=== PATIENT | female | born 1945 | race Native Hawaiian/Other Pacific Islander ===

== ENCOUNTER 2018-08-01 12:52 | Outpatient (CLI) | payer OTHER | END 2018-08-01 21:07 | disposition home or self-care (01) | LOC: RAD 12:52 | DX: M79.671 Pain in right foot (principal) ==

== ENCOUNTER 2019-06-15 16:20 | Outpatient (CLI) | payer OTHER | END 2019-06-15 19:47 | disposition home or self-care (01) | LOC: RAD 16:20 | DX: R05 Cough (principal) ==

== ENCOUNTER 2019-06-29 10:58 | Outpatient (CLI) | payer OTHER | END 2019-06-29 21:56 | disposition home or self-care (01) | LOC: RAD 10:58 | DX: M25.551 Pain in right hip (principal); N95.8 Other specified menopausal and perimenopausal disorders ==

== ENCOUNTER 2020-12-31 09:32 | Outpatient (CLI) | payer OTHER | END 2020-12-31 21:50 | disposition home or self-care (01) | LOC: RESP 09:32 | PROVIDERS: ATTEND Student in an Organized Health Care Education/Training Program | DX: E03.8 Other specified hypothyroidism (principal); Z86.39 Personal history of other endocrine, nutritional and metabolic disease; R53.83 Other fatigue; I10 Essential (primary) hypertension; E55.9 Vitamin D deficiency, unspecified; E53.8 Deficiency of other specified B group vitamins; R73.09 Other abnormal glucose; E78.00 Pure hypercholesterolemia, unspecified ==